=== PATIENT | male | born 1965 ===

== ENCOUNTER → 2019-04-09 | Outpatient (CLI) | payer OTHER ==
[~2019-04-09] MED LIST: ALPR-429 PO
--- NOTE | 2019-04-09 10:55 | EKG ---
FACILITY: [facility] [place] PATIENT NAME: DAYRON EID : [id number] MR: [id number] V: [id number] EXAM DATE: ORDERING PHYSICIAN: KINDRA ANDERSON TECHNOLOGIST: MERVIN Test Reason : CHEST PAIN Blood Pressure : / mmHG Vent. Rate : 055 BPM Atrial Rate : 055 BPM P-R Int : 148 ms QRS Dur : 096 ms QT Int : 424 ms P-R-T Axes : 043 003 023 degrees QTc Int : 405 ms Sinus bradycardia with sinus arrhythmia Otherwise normal ECG No previous ECGs available Confirmed by KINDRA ANDERSON [id number]) on 04/09/2019 12:27:11 PM Referred By: CINDY Confirmed By:KINDRA ANDERSON
== END ==
LOC: RESP 10:46
PROVIDERS: ATTEND Internal Medicine
DX: Z02.9 Encounter for administrative examinations, unspecified (principal)